=== PATIENT | male | born 1955 | race Two or more races ===

== ENCOUNTER 2017-05-30 09:18 | Day surgery (SDC) | payer OTHER ==
[2017-05-29 13:48] VITALS: BMI 26.6
[~2017-05-30 09:18] MED LIST: ACETAMINOPHEN 325 MG TABLET (FP) PO PRN; TRIAMCINOLONE ACET 40MG/1ML VIAL NR ONE
[2017-05-30] MEDS ORDERED: CIPROFLOXACIN 0.3% EYE DROPS 5 ML BOTTLE ONE (09:29)
[2017-05-30 09:39] VITALS: TEMP 97.8
[2017-05-30] MEDS: CIPROFLOXACIN HCL 0.3% OPHTH 2.5ML BOTTLE OP SCH ×3 (09:45→10:02)
[2017-05-30] MEDS ORDERED: TRIAMCINOLONE ACET 40MG/1ML VIAL ONE (10:49)
[2017-05-30] MEDS ORDERED: LIDOCAINE 1%/EPI 1:100000 (20 ML MULTI DOSE VIAL) ONE (10:50)
[2017-05-30] MEDS ORDERED: TETRACAINE 0.5% OPHTH SOLN 2 ML BOTTLE OS ONE (11:08)
[2017-05-30] MEDS ORDERED: MIDAZOLAM HCL 2 MG/2 ML SINGLE DOSE VIAL ONE (11:10)
[2017-05-30] MEDS ORDERED: POVIDONE-IODINE 5% OPHTHALMIC PREP 30 ML SOLUTION OS ONE (11:13)
[2017-05-30] MEDS ORDERED: BSS (NA/CA/MG/K) BALANCED SALT SOLUTION OPHTH SOLN 15 ML BOTTLE OS ONE (11:19)
[2017-05-30] MEDS ORDERED: LIDOCAINE 1%/EPI 1:100000 (20 ML MULTI DOSE VIAL) IJ ONE (11:19)
[2017-05-30] MEDS ORDERED: TRIAMCINOLONE ACET 40MG/1ML VIAL NR ONE (12:05)
[2017-05-30] MEDS ORDERED: ACETAMINOPHEN 325 MG TABLET (FP) ONE (13:27)
--- NOTE | 2017-05-30 14:10 | OP ---
DATE OF OPERATION: DATE OF DICTATION: 05/30/2017 PREOPERATIVE DIAGNOSIS: Pterygium, left eye. POSTOPERATIVE DIAGNOSIS: Pterygium, left eye. PROCEDURE: Excision of pterygium with conjunctival autograft as well as amniotic membrane transplantation, left eye. ANESTHESIA: Topical, MAC. COMPLICATIONS: None. PROCEDURE: Patient was brought into the operating room and correctly identified along with the operative site. He was then prepped and draped in the usual sterile fashion, including 5% Betadine solution in the conjunctival sac and eyelid drape. An eyelid speculum was then placed into the left eye. The borders of the pterygium were marked and 2 relaxing incisions were made in the conjunctiva superior and inferior to the pterygium. The pterygium was then bluntly dissected from the cornea using Elba scissors as well as Calibri forceps as well as Weck-miguel escobedo. There was a small amount of residual tissue left on the cornea and this was polished using a 57 blade as well as a sedrick bur. Care was made not to breach Sapp membrane during the polishing. The pterygium was then excised in its base and some dissection was performed beneath the remaining subconjunctival tissue until the surrounding conjunctiva was noted to be thinner. Care was made not to damage the medial rectus tendon by elevating the conjunctiva and the pterygium during the excision and dissection. The conjunctival defect was measured and measured vertically at the limbus 7.5 mm and vertically nasally 8.5 mm. Horizontally the conjunctival defect was 7 mm. Attention was then placed at superotemporal conjunctiva and the conjunctiva was marked using calipers. Subconjunctival lidocaine was injected to inflate the conjunctiva and using Elba scissors an appropriate-sized conjunctival graft was then excised. This graft was rather large and when it was brought over there seemed to be some potential wound gape. The conjunctival autograft was then secured in place with a total of seven 10-0 nylon sutures. No significant wound gape was noted after this as the conjunctiva had been mobilized previously. However, the decision was then made to cover the entire defect using amniotic membrane. Amniotic membrane was brought over and folded in half and then secured in place with a total of six 10-0 nylon sutures. At the end of the procedure both grafts were noted to be well positioned. Subconjunctival Kenalog was given at the pterygium excision site. Vancomycin was given topically, the eye patched and the patient discharged from the operating room in a stable condition. KATIE ROBERT M.D. [id number]
[2017-05-30 14:28] VITALS: BP 143/76; PULSE 73
--- NOTE | 2017-05-31 14:23 | PATH ---
Surgical Pathology Report Patient Name: CHILO CASPER [facility]. Rec. #: [id number] /Age/Gender: 1955 (Age: 61) / M Account: [id number] Location: [facility] SURGICAL Taken: 05/30/2017 Received: 05/30/2017 Reported: 05/31/2017 Physicians: Juan David Pryor M.D. Specimen(s) Received PTERYGIUM, LEFT EYE Clinical History Pterygium left eye Final Diagnosis EYE, LEFT, NASAL PTERYGIUM, EXCISION: CONJUNCTIVAL MUCOSA WITH GOBLET CELL HYPERPLASIA CONSISTENT WITH PTERYGIUM. Electronically Signed Romi Spencer M.D. Gross Description Received in formalin, labeled "nasal pterygium left eye" is a mathis, irregular portion of soft tissue measuring 0.7 cm. in greatest dimension. The specimen is submitted in toto in one cassette. /05/30/2017 saudi/05/30/2017
== END 2017-05-30 14:35 | disposition home or self-care (01) ==
LOC: JASU-SURG 09:18
PROVIDERS: ATTEND Ophthalmology
PROC: 08U107Z Supplement of Left Eye with Autologous Tissue Substitute, Open Approach (ICD-10-PCS; principal; 2017-05-30 11:00)
DX: H11.002 Unspecified pterygium of left eye (principal)
CPT/HCPCS: 88304-TC